=== PATIENT | male | born 1955 | race Hispanic/Latino ===

== ENCOUNTER 2018-02-14 12:00 | Inpatient (IN) | payer OTHER ==
[~2018-02-14] VITALS: Ht 170.2 cm; Wt 93.2 kg
[2018-02-14 13:07] LABS: BASOPHILS % (AUTO) 0.1 % (0.0-5.0); EOSINOPHILS % (AUTO) 0.1 % (0.0-8.0); HEMATOCRIT 49.1 % (42-54); LYMPHOCYTES % (AUTO) 3.4 % (21.0-51.0); MEAN CORPUSCULAR HEMOGLOBIN 28.5 pg (27.0-33.0); MEAN CORPUSCULAR HGB CONC 33.5 g/dL (32.0-36.0); MEAN CORPUSCULAR VOLUME 85.3 fL (79-99); NEUTROPHILS % (AUTO) 92.4 % (40.0-77.0); PLATELET COUNT (AUTO) 219 K/uL (130-400); RED BLOOD CELL COUNT(AUTO) 5.76 MIL/uL (4.50-6.20); RED CELL DISTRIBUTION WIDTH 13.2 % (11.0-15.5); WHITE BLOOD COUNT (AUTO) 18.1 K/uL (4.8-10.8)
[2018-02-14] MEDS ORDERED: ACETAMINOPHEN 325 MG TAB ONE (13:10)
[2018-02-14] MEDS ORDERED: SODIUM CHLORIDE 0.9% 50 ML IV ONE (13:10)
[2018-02-14] MEDS ORDERED: SODIUM CHLORIDE 0.9% 1000ML 1,000 ML IV ONE (13:10)
[2018-02-14] MEDS ORDERED: CEFTRIAXONE SODIUM 2 GM VIAL ONE (13:10)
[2018-02-14 13:21] LABS: CARBON DIOXIDE 28 mmol/L (21-32); CHLORIDE 97 mmol/L (101-111); CREATININE 1.1 mg/dL (0.5-1.5); GLOMERULAR FILTR. RATE CALC 72 mL/min (>60); GLUCOSE,RANDOM 154 mg/dL (70-105); POTASSIUM 3.3 mmol/L (3.5-5.1); SODIUM SERUM 134 mmol/L (136-145); UREA NITROGEN, BLOOD 13 mg/dL (7-18)
[2018-02-14 13:24] LABS: PARTIAL THROMBOPLASTIN TIME 27.2 SEC (26.3-35.5); PROTHROMBIN TIME 10.5 SEC (9.6-11.6)
[2018-02-14 13:31] LABS: ALANINE AMINOTRANSFERASE 22 U/L (12-78); ALBUMIN 3.8 g/dL (3.5-5.0); ASPARTATE AMINOTRANSFERASE 11 U/L (10-37); BILIRUBIN,TOTAL 1.7 mg/dL (0.2-1.0); CREATINE KINASE, TOTAL 71 U/L (21-232); MYOGLOBIN 45 ng/mL (10-92); TOTAL PROTEIN, SERUM 7.7 g/dL (6.0-8.3); TROPONIN I < 0.04 ng/mL (0.00-0.06)
[2018-02-14] MEDS ORDERED: SODIUM CHLORIDE 0.9% 1000ML 2,000 ML IV ONE (14:43)
[2018-02-14 14:53] LABS: APPEARANCE,URINE Clear (CLEAR); BILIRUBIN,URINE Negative (NEGATIVE); COLOR,URINE Yellow (YELLOW); GLUCOSE, URINE (UA) TRACE mg/dL (NEGATIVE); KETONES,URINE Trace mg/dL (NEGATIVE); LEUKOCYTE ESTERASE ,URINE Negative (NEGATIVE); NITRATE,URINE Negative (NEGATIVE); OCCULT BLOOD,URINE Negative (NEGATIVE); PROTEIN,URINE Negative (NEGATIVE)
[2018-02-14 15:11] LABS: BACTERIA,URINE Rare /HPF (None Seen); HYALINE CASTS, URINE 0-1 /LPF (0-1 /LPF); MUCUS,URINE Rare LPF (None Seen); RBC,URINE 0-1 /HPF (0-1); SQUAMOUS EPITHELIAL CELL,UR Rare /HPF (0-2); WBC,URINE 0-1 /HPF (0-1)
[2018-02-14] MEDS ORDERED: ONDANSETRON HCL 4 MG/2 ML VIAL IV PRN (15:15)
[2018-02-14] MEDS ORDERED: NITROGLYCERIN 0.4 MG SL TAB SL PRN (15:15)
[2018-02-14] MEDS ORDERED: MORPHINE SULFATE 2 MG/ML 1ML SYG IV PRN (15:15)
[2018-02-14] MEDS ORDERED: LACTULOSE 20 GM/30 ML UDCUP PO PRN (15:15)
[2018-02-14] MEDS ORDERED: ACETAMINOPHEN 325 MG TAB PO PRN ×2 (15:15)
[2018-02-14 15:58] LABS: HEMOGLOBIN A1C 7.4 % (4.0-6.0)
[2018-02-14 19:55] VITALS: BP 165/77
[2018-02-14] MEDS ORDERED: GLUCAGON 1MG KIT 1 MG ML IM PRN (20:45)
[2018-02-14] MEDS ORDERED: LIDOCAINE HCL-MPF 1% 2ML VIAL IVP PRN (20:45)
[2018-02-14] MEDS ORDERED: POTASSIUM CHLORIDE 10% ELIXIR 20 MEQ/15 ML UDCUP PO PRN (20:45)
[2018-02-14] MEDS ORDERED: DEXTROSE 50%-WATER 50 ML DISP.SYRIN IV PRN (20:45)
[2018-02-14] MEDS ORDERED: POTASSIUM CHLORIDE 20MEQ/100ML 100 ML IV PRN (20:45)
[2018-02-14 20:50] VITALS: BP 96/63
[2018-02-14] MEDS: CEFTRIAXONE SODIUM 1 GM IV SCH (21:00)
[2018-02-14] MEDS ORDERED: ROSU20TA30 PO (21:10)
[2018-02-14] MEDS ORDERED: LISI10TA7 PO (21:10)
[2018-02-14] MEDS ORDERED: IBUP-2070 PO (21:10)
[2018-02-14] MEDS ORDERED: SITA100T12 PO (21:10)
[2018-02-14] MEDS ORDERED: METF-446 PO (21:10)
[2018-02-14] MEDS ORDERED: GLIP10TA9 PO (21:10)
[2018-02-14] MEDS: SODIUM CHLORIDE 0.9% 1000ML 1,000 ML IV SCH ×2 (21:41→22:58)
[2018-02-14] MEDS: MAGNESIUM 2GM PREMIX 50ML 50 ML IV PRN (21:42)
[2018-02-14] MEDS: POTASSIUM CHLORIDE 20 MEQ ERTAB PO PRN ×2 (22:01→23:57)
[2018-02-14 23:54] VITALS: BP 108/46
[2018-02-15] MEDS: IBUPROFEN 600 MG TABLET PO PRN ×2 (01:12→14:09)
[2018-02-15 03:51] VITALS: BP 94/56
[2018-02-15 04:52] LABS: BASOPHILS % (AUTO) 0.3 % (0.0-5.0); HEMATOCRIT 37.8 % (42-54); LYMPHOCYTES % (AUTO) 7.1 % (21.0-51.0); MEAN CORPUSCULAR HEMOGLOBIN 29.2 pg (27.0-33.0); MEAN CORPUSCULAR HGB CONC 34.5 g/dL (32.0-36.0); MEAN CORPUSCULAR VOLUME 84.6 fL (79-99); MONOCYTES % (AUTO) 6.5 % (3.0-13.0); NEUTROPHILS % (AUTO) 86.1 % (40.0-77.0); PLATELET COUNT (AUTO) 219 K/uL (130-400); RED BLOOD CELL COUNT(AUTO) 4.46 MIL/uL (4.50-6.20); RED CELL DISTRIBUTION WIDTH 13.1 % (11.0-15.5); WHITE BLOOD COUNT (AUTO) 27.6 K/uL (4.8-10.8)
[2018-02-15 05:12] LABS: ALBUMIN 2.6 g/dL (3.5-5.0); BILIRUBIN,TOTAL 1.2 mg/dL (0.2-1.0); CRP QUANTITATIVE 273.7 mg/L (0.00-9.0); MAGNESIUM 1.5 mg/dL (1.80-2.40); POTASSIUM 4.1 mmol/L (3.5-5.1); TOTAL PROTEIN, SERUM 5.9 g/dL (6.0-8.3)
[2018-02-15] MEDS ORDERED: VANCOMYCIN PROTOCOL PER PHARMACY IV SCH (05:45)
[2018-02-15] MEDS: MAGNESIUM 2GM PREMIX 50ML 50 ML IV PRN (05:53)
[2018-02-15] MEDS: INSULIN HUMULIN R 100 UNIT/ML 3ML SQ SCH ×4 (06:10→20:46)
[2018-02-15] MEDS ORDERED: VANCOMYCIN 2 GM in SODIUM CHLORIDE 0.9% 500ML 500 ML IV SCH (06:30)
[2018-02-15 08:00] VITALS: BP 104/68
[2018-02-15] MEDS: GLIPIZIDE XL 10MG TAB PO SCH (08:00)
[2018-02-15] MEDS ORDERED: METFORMIN HCL 500 MG TAB.SR.24H PO SCH (08:00)
[2018-02-15] MEDS ORDERED: TAMSULOSIN HCL 0.4 MG CAP.ER.24H PO SCH (09:00)
[2018-02-15] MEDS ORDERED: PANTOPRAZOLE 40 MG/VIAL IVP SCH (09:00)
[2018-02-15] MEDS ORDERED: SITAGLIPTIN PHOSPHATE 100 MG PO SCH (09:00)
[2018-02-15] MEDS: CEFTRIAXONE SODIUM 1 GM IV SCH ×2 (09:28→20:23)
[2018-02-15] MEDS: PANTOPRAZOLE SODIUM 40 MG TABLET.DR PO SCH (09:28)
[2018-02-15] MEDS: ENOXAPARIN SODIUM 40 MG/0.4 ML SYRINGE SQ SCH (09:29)
[2018-02-15 11:00] VITALS: BP 126/78
[2018-02-15] MEDS ORDERED: COMPOUND IV REFRIGERATED 1 EACH IVSOLN MISC PRN (11:45)
[2018-02-15] MEDS: LISINOPRIL 10 MG TABLET PO SCH (11:49)
[2018-02-15] MEDS: SODIUM CHLORIDE 0.9% 1000ML 1,000 ML IV SCH ×2 (14:09→23:16)
[2018-02-15 16:00] VITALS: BP 119/70
[2018-02-15] MEDS ORDERED: ATORVASTATIN CALCIUM 40 MG TABLET ONE (16:49)
[2018-02-15] MEDS: ATORVASTATIN CALCIUM 40 MG TABLET PO SCH (16:51)
[2018-02-15] MEDS: METFORMIN HCL 500 MG TAB.SR.24H PO SCH (16:52)
[2018-02-15] MEDS: LINAGLIPTIN 5 MG TABLET PO SCH (16:52)
[2018-02-15] MEDS: VANCOMYCIN 1.5 GM in SODIUM CHLORIDE 0.9% 250 ML IV SCH (18:19)
[2018-02-15] MEDS: ZOSYN 3.375GM+NS 50ML 50 ML IV SCH (20:24)
[2018-02-15 20:54] VITALS: BP 104/68
[2018-02-15] MEDS ORDERED: ATORVASTATIN CALCIUM 40 MG TABLET PO SCH (21:00)
[2018-02-16] VITALS (7 sets, daily range): BP systolic 99–130; BP diastolic 60–81
[2018-02-16] MEDS: ZOSYN 3.375GM+NS 50ML 50 ML IV SCH ×3 (04:57→20:56)
[2018-02-16 05:27] LABS: HEMATOCRIT 36.2 % (42-54); MEAN CORPUSCULAR HEMOGLOBIN 29.1 pg (27.0-33.0); MEAN CORPUSCULAR HGB CONC 34.5 g/dL (32.0-36.0); MEAN CORPUSCULAR VOLUME 84.2 fL (79-99); NUCLEATED RED BLOOD CELLS 0.1 % (0.0-0.19); PLATELET COUNT (AUTO) 209 K/uL (130-400); RED CELL DISTRIBUTION WIDTH 13.7 % (11.0-15.5)
[2018-02-16 05:52] LABS: CREATININE 0.7 mg/dL (0.5-1.5); POTASSIUM 3.5 mmol/L (3.5-5.1)
[2018-02-16] MEDS: VANCOMYCIN 1.5 GM in SODIUM CHLORIDE 0.9% 250 ML IV SCH (06:13)
[2018-02-16] MEDS: POTASSIUM CHLORIDE 20 MEQ ERTAB PO PRN (06:13)
[2018-02-16] MEDS: SODIUM CHLORIDE 0.9% 1000ML 1,000 ML IV SCH ×3 (06:24→23:45)
[2018-02-16] MEDS: INSULIN HUMULIN R 100 UNIT/ML 3ML SQ SCH ×4 (06:24→21:00)
[2018-02-16] MEDS: PANTOPRAZOLE SODIUM 40 MG TABLET.DR PO SCH (06:55)
[2018-02-16] MEDS: LISINOPRIL 10 MG TABLET PO SCH (10:15)
[2018-02-16] MEDS: ENOXAPARIN SODIUM 40 MG/0.4 ML SYRINGE SQ SCH (10:16)
[2018-02-16] MEDS: CEFTRIAXONE SODIUM 1 GM IV SCH (10:16)
[2018-02-16] MEDS: GLIPIZIDE XL 10MG TAB PO SCH (10:17)
[2018-02-16] MEDS: METFORMIN HCL 500 MG TAB.SR.24H PO SCH ×2 (10:17→17:26)
[2018-02-16] MEDS ORDERED: GADODIAMIDE 10 MMOL/20 ML ML IV ONE (15:28)
[2018-02-16] MEDS ORDERED: LORAZEPAM 2 MG/ML 1 ML VIAL ONE (15:34)
[2018-02-16] MEDS ORDERED: LORAZEPAM 2 MG/ML 1 ML VIAL IVP PRN (15:45)
[2018-02-16] MEDS: ATORVASTATIN CALCIUM 40 MG TABLET PO SCH (17:26)
[2018-02-16] MEDS: LINAGLIPTIN 5 MG TABLET PO SCH (17:26)
[2018-02-16] MEDS: VANCOMYCIN 1GM+NS 250ML 250 ML IV SCH (20:56)
[2018-02-17 03:38] VITALS: BP 124/76
[2018-02-17] MEDS: VANCOMYCIN 1GM+NS 250ML 250 ML IV SCH (04:24)
[2018-02-17] MEDS: ZOSYN 3.375GM+NS 50ML 50 ML IV SCH (04:24)
[2018-02-17 05:00] LABS: HEMATOCRIT 36.4 % (42-54); MEAN CORPUSCULAR HEMOGLOBIN 28.7 pg (27.0-33.0); MEAN CORPUSCULAR HGB CONC 33.7 g/dL (32.0-36.0); MEAN CORPUSCULAR VOLUME 85.3 fL (79-99); PLATELET COUNT (AUTO) 212 K/uL (130-400); RED BLOOD CELL COUNT(AUTO) 4.26 MIL/uL (4.50-6.20); RED CELL DISTRIBUTION WIDTH 13.3 % (11.0-15.5); WHITE BLOOD COUNT (AUTO) 10.7 K/uL (4.8-10.8)
[2018-02-17 05:16] LABS: CREATININE 0.8 mg/dL (0.5-1.5); POTASSIUM 3.8 mmol/L (3.5-5.1)
[2018-02-17 06:12] LABS: ERYTHROCYTE SEDIMENTATION RATE 45 MM/HR (0-20)
[2018-02-17] MEDS: SODIUM CHLORIDE 0.9% 1000ML 1,000 ML IV SCH ×2 (07:09→15:09)
[2018-02-17 07:44] VITALS: BP 132/69
[2018-02-17] MEDS: GLIPIZIDE XL 10MG TAB PO SCH (09:48)
[2018-02-17] MEDS: ENOXAPARIN SODIUM 40 MG/0.4 ML SYRINGE SQ SCH (09:49)
[2018-02-17] MEDS: LISINOPRIL 10 MG TABLET PO SCH (09:50)
[2018-02-17] MEDS: PANTOPRAZOLE SODIUM 40 MG TABLET.DR PO SCH (09:50)
[2018-02-17] MEDS: INSULIN HUMULIN R 100 UNIT/ML 3ML SQ SCH ×4 (09:54→21:00)
[2018-02-17 11:25] VITALS: BP 140/77
[2018-02-17] MEDS: CEFTRIAXONE SODIUM 2 GM VIAL IVP SCH (13:06)
[2018-02-17] MEDS: ATORVASTATIN CALCIUM 40 MG TABLET PO SCH (15:51)
[2018-02-17] MEDS: LINAGLIPTIN 5 MG TABLET PO SCH (15:51)
[2018-02-17] MEDS: BENZONATATE 100 MG CAPSULE PO PRN (15:51)
[2018-02-17 16:20] VITALS: BP 128/75
[2018-02-17 19:24] VITALS: BP 123/73
[2018-02-17 23:32] VITALS: BP 128/72
[2018-02-18 03:31] VITALS: BP 120/78
[2018-02-18] MEDS: INSULIN HUMULIN R 100 UNIT/ML 3ML SQ SCH ×4 (06:18→21:00)
[2018-02-18 08:00] VITALS: BP 141/76
[2018-02-18] MEDS: LISINOPRIL 10 MG TABLET PO SCH (08:52)
[2018-02-18] MEDS: PANTOPRAZOLE SODIUM 40 MG TABLET.DR PO SCH (08:53)
[2018-02-18] MEDS: GLIPIZIDE XL 10MG TAB PO SCH (08:53)
[2018-02-18] MEDS: ENOXAPARIN SODIUM 40 MG/0.4 ML SYRINGE SQ SCH (08:54)
[2018-02-18 11:00] VITALS: BP 126/77
[2018-02-18] MEDS: CEFTRIAXONE SODIUM 2 GM VIAL IVP SCH (11:17)
[2018-02-18 15:22] LABS: INR 0.97 (0.85-1.15); PARTIAL THROMBOPLASTIN TIME 32.4 SEC (26.3-35.5); PROTHROMBIN TIME 10.2 SEC (9.6-11.6)
[2018-02-18 16:00] VITALS: BP 142/77
[2018-02-18] MEDS: ATORVASTATIN CALCIUM 40 MG TABLET PO SCH (16:47)
[2018-02-18] MEDS: LINAGLIPTIN 5 MG TABLET PO SCH (16:48)
[2018-02-18] MEDS: IPRATROPIUM/ALBUTEROL SULFATE 3 ML SOLUTION IH SCH ×2 (18:44→23:32)
[2018-02-18 19:57] VITALS: BP 133/58
[2018-02-18 23:54] VITALS: BP 112/61
[2018-02-19 04:00] VITALS: BP 122/66
[2018-02-19] MEDS: IPRATROPIUM/ALBUTEROL SULFATE 3 ML SOLUTION IH SCH ×3 (06:03→23:16)
[2018-02-19] MEDS: INSULIN HUMULIN R 100 UNIT/ML 3ML SQ SCH ×4 (06:14→20:46)
[2018-02-19] MEDS: PANTOPRAZOLE SODIUM 40 MG TABLET.DR PO SCH (06:22)
[2018-02-19 08:00] VITALS: BP 125/77
[2018-02-19] MEDS: LISINOPRIL 10 MG TABLET PO SCH (08:45)
[2018-02-19] MEDS: GLIPIZIDE XL 10MG TAB PO SCH (08:46)
[2018-02-19] MEDS: ENOXAPARIN SODIUM 40 MG/0.4 ML SYRINGE SQ SCH (08:56)
[2018-02-19 11:00] VITALS: BP 128/72
[2018-02-19] MEDS: CEFTRIAXONE SODIUM 2 GM VIAL IVP SCH (11:39)
[2018-02-19 16:00] VITALS: BP 127/77
[2018-02-19] MEDS: ATORVASTATIN CALCIUM 40 MG TABLET PO SCH (17:36)
[2018-02-19] MEDS: LINAGLIPTIN 5 MG TABLET PO SCH (17:36)
[2018-02-19] MEDS ORDERED: CEFTRIAXONE SODIUM IVP (18:06)
[2018-02-19 20:21] VITALS: BP 136/69
[2018-02-19] MEDS: BENZONATATE 100 MG CAPSULE PO PRN (20:50)
[2018-02-19 23:33] VITALS: BP 126/67
[2018-02-20 04:00] VITALS: BP 116/67
[2018-02-20] MEDS: IPRATROPIUM/ALBUTEROL SULFATE 3 ML SOLUTION IH SCH ×2 (06:00→11:30)
[2018-02-20] MEDS: INSULIN HUMULIN R 100 UNIT/ML 3ML SQ SCH ×2 (06:11→11:24)
[2018-02-20 07:36] VITALS: BP 124/73
[2018-02-20] MEDS: PANTOPRAZOLE SODIUM 40 MG TABLET.DR PO SCH (07:49)
[2018-02-20] MEDS: GLIPIZIDE XL 10MG TAB PO SCH (07:54)
[2018-02-20] MEDS: LISINOPRIL 10 MG TABLET PO SCH (07:54)
[2018-02-20] MEDS: ENOXAPARIN SODIUM 40 MG/0.4 ML SYRINGE SQ SCH (07:55)
[2018-02-20 11:00] VITALS: BP 126/72
[2018-02-20] MEDS: CEFTRIAXONE SODIUM 2 GM VIAL IVP SCH (11:05)
== END 2018-02-20 12:30 | disposition home or self-care (01) | DRG 871 ==
LOC: EDH 12:00 → EDHIP 15:09 → 4BH 20:54
PROVIDERS: ADMIT Internal Medicine; ATTEND Internal Medicine
PROC: 02HV33Z Insertion of Infusion Device into Superior Vena Cava, Percutaneous Approach (ICD-10-PCS; principal; 2018-02-19)
PROC: B548ZZA Ultrasonography of Superior Vena Cava, Guidance (ICD-10-PCS; 2018-02-19)
DX: A40.3 Sepsis due to Streptococcus pneumoniae (principal); R65.20 Severe sepsis without septic shock; N12 Tubulo-interstitial nephritis, not specified as acute or chronic; N17.9 Acute kidney failure, unspecified; E11.65 Type 2 diabetes mellitus with hyperglycemia; E78.5 Hyperlipidemia, unspecified; E83.42 Hypomagnesemia; E86.1 Hypovolemia; E87.6 Hypokalemia; I10 Essential (primary) hypertension; M54.5 Low back pain; E66.9 Obesity, unspecified; Z83.3 Family history of diabetes mellitus; Z79.899 Other long term (current) drug therapy; Z79.84 Long term (current) use of oral hypoglycemic drugs; Z68.32 Body mass index [BMI] 32.0-32.9, adult
CPT/HCPCS: 36415; 71045; 72131; 72157; 72158; 74176; 80048; 80053; 80202; 80339; 81001; 82550; 82948; 83036; 83605; 83735; 83874; 84484; 85025; 85027; 85610; 85651; 85730; 86140; 87040; 87077; 87088; 87186; 87507; 87804; 93005; 93306; 94640; 94664; A4218; A9579; C9113; J0696; J1650; J1815; J2060; J2543; J3370; J3475; J7030; J7040